=== PATIENT | male | born 1965 | race Caucasian/White ===

== ENCOUNTER → 2021-08-16 10:27 | Outpatient (REF) | payer OTHER, SELFPAY | LOC: ANHLAB 10:27 | PROVIDERS: PCP Internal Medicine; Visit Provider Nurse Practitioner | DX: L72.11 Pilar cyst (principal) | CPT/HCPCS: 88304 ==

== ENCOUNTER 2022-09-23 12:59 | Outpatient (NON) | payer OTHER, SELFPAY | END 2022-09-23 13:00 | disposition home or self-care (01) | LOC: ANHLAB 09-25 13:03 | PROVIDERS: PCP Internal Medicine; Visit Provider Nurse Practitioner | DX: D49.2 Neoplasm of unspecified behavior of bone, soft tissue, and skin (principal) | CPT/HCPCS: 88305 ==

== ENCOUNTER 2022-10-14 11:12 | Outpatient (NON) | payer OTHER, SELFPAY | END 2022-10-14 11:13 | disposition home or self-care (01) | LOC: ANHLAB 11:12 | PROVIDERS: PCP Internal Medicine; Visit Provider Nurse Practitioner | DX: C44.1192 Basal cell carcinoma of skin of left lower eyelid, including canthus (principal) | CPT/HCPCS: 88305; 88331 ==

== ENCOUNTER 2023-01-27 13:45 | Outpatient (NON) | payer OTHER, SELFPAY | END 2023-01-27 13:46 | disposition home or self-care (01) | LOC: ANHLAB 01-29 13:47 | PROVIDERS: PCP Internal Medicine; Visit Provider Nurse Practitioner | DX: C44.212 Basal cell carcinoma of skin of right ear and external auricular canal (principal) | CPT/HCPCS: 88305 ==

== ENCOUNTER 2023-03-17 13:51 | Outpatient (NON) | payer OTHER, SELFPAY | END 2023-03-17 13:52 | disposition home or self-care (01) | LOC: ANHLAB 13:51 | PROVIDERS: PCP Internal Medicine; Visit Provider Nurse Practitioner | DX: C44.212 Basal cell carcinoma of skin of right ear and external auricular canal (principal) | CPT/HCPCS: 88305; 88331 ==